=== PATIENT | male | born 1955 | race Caucasian/White ===

== ENCOUNTER → 2016-12-31 | Outpatient (CLI) | payer OTHER | LOC: RAD 15:03 | DX: M54.5 Low back pain (principal); M54.6 Pain in thoracic spine ==

== ENCOUNTER → 2017-06-20 | Outpatient (CLI) | payer OTHER ==
[~2017-06-20] VITALS: Ht 177.8 cm; Wt 97.5 kg
[~2017-06-20] MED LIST: ARISTADA1064 MG/3. IM; ATIVAN0.5 MG PO; CITRATE OF MAG296 M1 PO; COLACE100 MG PO; CYMBALTA60 MG PO; DEPAKOTE ER500 MG PO; DULCOLAX5 MG PO; FISH OIL 1,001000 M2 PO; FLOMAX0.4 MG PO; LIDOCAINE1 EACH TRANSDERM; LIORESAL 10 MG10 MG PO; MILK OF MA2400 MG/10 PO; NAPROXEN250 MG PO; PERCOCET PO; POLYETHYLENE G255 G1 PO; PROBIOTIC1 EAC1 PO; SEROQUEL 50 MG50 MG PO; SYNTHROID50 MCG PO; TIZANIDINE HCL4 M1 PO; TRAMADOL 50 MG50 MG PO; TRAZODONE HCL100 MG PO; VITAMIN C100 MG PO; VITAMIN D2000 UNIT PO; ZANAFLEX4 MG PO
--- NOTE | ~2017-06-20 | HPC ---
[facility] [place] [address] PAIN MANAGEMENT CONSULTATION Name: SENA BAÑUELOS [facility] [id number] Admission: 06/20/17 Attend Phys: Abrahan Chaves DO Discharge: Date of : 55 Report #: [id number] THIS REPORT FOR: //name// CC: Sena Chaves PAIN CLINIC CONSULT The patient is a 62-year-old gentleman seen in consultation at the request of Dr. Victor Hugo Romero for consideration of spinal cord stimulator trial. HISTORY OF PRESENT ILLNESS: The patient is a 62-year-old gentleman with chronic axial back pain for 8 years off and on, though he relates onset of pain following an event in 2001. He states he was swinging from a tree vine, which snapped and he fell striking his back with acute exacerbation of back pain. He states he struggled with this for some time. Apparently, his passed in 2006 and he has struggled with significant depression and psychosis since. Currently, he lives at the [facility] residential care facility for his psychosis. He is seeing Dr. Jeremy Lopez and Elie Renteria his psychologist. They have gotten him to the point where he is a little more functionally stable, but he states his pain is "10" on a VAS and significantly interferes with function. He describes continuous, steady, burning, aching, pulling, sharp, stabbing pain. Again, pain impact score is 59/70. He denies saddle anesthesia or bowel or bladder continence changes. When asked if he has weakness, he states he "feels tired." He does note some paresthesia in the posterior thigh and lateral calf bilaterally. He states his pain is primarily in the low back with some radiation down the left foot and heel. The patient states he has had an IM injections of some sort with questionable efficacy. He apparently had seen a pain clinic physician, Dr. Richter, and had an injection of some kind, (difficult to tell if this is a trigger point or an epidural injection), which he states it made his pain worse, this was in December. He states he has done chiropractic manipulation, acupuncture, massage, all with nominal efficacy. He notes his pain is exacerbated with any axial loading, standing or walking. He gets some relief when he is recumbent. REVIEW OF SYSTEMS: Complete review of systems was attached to chart and gone over with the patient. SOCIAL HISTORY: He is . He does not smoke or drink alcohol to excess. He did smoke and use recreational marijuana and drink to excess some 40 years ago. 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 MEDICATIONS: Include thyroid supplement for hypothyroidism. Multiple medications for bipolar disorder and psychosis including Abilify, Depakote, Cymbalta, trazodone, and lorazepam. He had been on Flexeril, but was recently rotated to baclofen by a psychiatrist with no improvement of the axial back [address] [address] PAIN MANAGEMENT CONSULTATION Name: SENA BAÑUELOS Room #: REG JADEN Azul#: [id number] Admission: 06/20/17 Attend Phys: Abrahan Chaves DO Discharge: Date of : 55 Report #: [id number] pain. He takes tramadol p.r.n. for pain. The patient lists his occupation as "retired." He has been unable to work since his passed and now some 8 years ago. I believe he is currently on worker's compensation but he is receiving disability income worker's compensation. 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 PHYSICAL EXAMINATION: Reveals a 5 feet 10 inches, 215 pounds gentleman, BMI is 30.8 kilograms per meter squared, blood pressure 118/63, pulse 64, respirations 18. Cranial nerves 2-12 are grossly intact. Pupils equal, react to light and accommodation. Extraocular muscles are intact. There is no nystagmus, lateral gaze deviation. Cervical range of motion is full. Thyroid is unremarkable. Upper extremity strength is preserved. Heart is regular rhythmical without murmur. Lungs are clear to auscultation. He rises from chair using armrest. Gait is tandem. Lumbar flexion is limited, thoracic paravertebral muscles shows significant spasm from about T7 down to L2. No discrete trigger points are noted. Patellar reflexes 1/4 with isometric contraction. Achilles reflexes are 0-1/4 and symmetric. Lower extremity strength is symmetric at 4-5. Straight leg raise is negative. Pain is exacerbated with standing and rotating and side bending exacerbate axial back pain. DIAGNOSTIC STUDIES: Include x-ray of the lumbar spine from 12/31/2016 noting old T12 and L1 compression fractures. Thoracic spine similarly shows the T12 and L1 wedge deformities, no other pathology noted. ASSESSMENT: Axial back pain, thoracolumbar spondylosis, vertebral compression fractures by history, chronic pain syndrome in a gentleman with bipolar disorder and psychosis. RECOMMENDATIONS: Discussion with the patient today about therapeutic options. He was not too enthused when I suggested a TENS unit. I suggested that it may help with some of the muscle spasm. I suggested rotating from baclofen to tizanidine 4 mg t.i.d. for spasm. He was very curious about a spinal cord stimulator. I discussed risks, benefits and proposed mechanism of action. The patient seemed to understand. He was given a disc from a [employer] regarding this device. I did give him a psychological evaluation as required by most third alliance party payers for spinal cord stimulator implant. Assuming he passes the psychiatric exam which is questionable at best, we will seek authorization for spinal cord stimulator trial to help with chronic axial back pain that has been recalcitrant through conservative therapies. We will see the patient back in 4 weeks for reevaluation. <ELECTRONICALLY SIGNED> By: Abrahan Chaves DO 06/23/17 0911 1620 [id number] Abrahan Chaves DO /nt
[2017-06-20 11:09] VITALS: BP 118/63
== END ==
LOC: PAIN 06:56
DX: M47.895 Other spondylosis, thoracolumbar region (principal); G89.4 Chronic pain syndrome; F31.9 Bipolar disorder, unspecified; F29 Unspecified psychosis not due to a substance or known physiological condition; F15.90 Other stimulant use, unspecified, uncomplicated; Z87.891 Personal history of nicotine dependence

== ENCOUNTER → 2017-07-21 | Outpatient (CLI) | payer OTHER ==
[~2017-07-21] VITALS: Ht 177.8 cm; Wt 99.8 kg
--- NOTE | ~2017-07-21 | HPC ---
[facility] [place] [address] PAIN MANAGEMENT CONSULTATION Name: SENA BAÑUELOS Room #: REG [facility] [id number] Admission: 07/21/17 Attend Phys: Abrahan Chaves, DO Discharge: Date of : 55 Report #: [id number] THIS REPORT FOR: //name// CC: Sena Chaves The patient is a 62-year-old gentleman, prior seen in the pain clinic on 06/20/2017. He was seen at the request of Dr. Romero for consideration for spinal cord stimulator trial. He was diagnosed at that time with axial back pain, thoracolumbar spondylosis, history of vertebral compression fractures, chronic pain syndrome in a gentleman with bipolar disorder and psychosis. I had a prolonged discussion with the patient and his cartridge loader about trialing a TENS unit rotating from baclofen to tizanidine for spasm. We discussed the spinal cord stimulator for chronic axial back and radicular pain. I talked about the need for psychological evaluation as required by most third libertarian payers for spinal cord stimulator implant. The patient returns to the pain clinic today. He did not get the TENS unit trial. He states that the tizanidine was not effective and notes that the baclofen was not effective either. States he did not talk to his psychologist regarding authorization for spinal cord stimulator. I reviewed again with the patient today the specific requirement by insurance company for psychological evaluation, "please evaluate the patient for each of the following psychological disorders both past and current including but not limited to: Major psychopathology, severe depression that would interfere with ability to translate pain relief into increased function, personality disorders, somatoform pain disorders, substance abuse, anxiety disorder, malingering, indications of secondary gain. Evaluate the patient's coping resources and abilities and the patient's understanding of the proposed procedure. After discussion with the patient today, I again remain somewhat skeptical that he will pass this evaluation. However, if he does, I will be happy to trial a stimulator. In the meantime, I rewrote the TENS unit trial for myofascial pain component. I will not renew tizanidine due to lack of efficacy. Follow up after TENS trial for efficacy evaluation and consideration for a spinal cord stimulator if he passes psychological evaluation. <ELECTRONICALLY SIGNED> By: Abrahan Chaves DO 07/23/17 0724 1618 [id number] Abrahan Chaves DO /nt
[2017-07-21 10:24] VITALS: BP 112/69
== END ==
LOC: PAIN 07:30
DX: M47.895 Other spondylosis, thoracolumbar region (principal)

== ENCOUNTER → 2017-08-15 | Outpatient (CLI) | payer OTHER ==
[~2017-08-15] VITALS: Ht 177.8 cm; Wt 102.8 kg
--- NOTE | ~2017-08-15 | HPC ---
[facility] [place] [address] PAIN MANAGEMENT CONSULTATION Name: SENA BAÑUELOS Room #: [facility] [id number] Admission: 08/15/17 Attend Phys: Abrahan Chaves DO Discharge: Date of : 55 Report #: [id number] THIS REPORT FOR: //name// CC: Sena Chaves The patient is a 62-year-old gentleman, specifically referred to the pain clinic 06/20/2017, for consideration of a spinal cord stimulator to help with ongoing axial back pain by his neurosurgeon, Dr. Victor Hugo Romero. I saw the patient at that time and in followup 07/21/2017. He did have a component of myofascial pain and I wrote for a TENS unit. We trialled rotating from baclofen to tizanidine with really no efficacy. He returns to pain clinic today noting the TENS unit does afford some relief. Still, however, notes pain remains a 6-7 on a VAS at its worse, it is down to a 2/10 with the stimulator presently. He is desirous of moving forward with spinal cord stimulator trial for ongoing axial back pain status post L2 compression fracture in the distant past. PHYSICAL EXAMINATION: Otherwise unchanged, 5 feet 10 inches, 226-pound gentleman, BMI is 32.5 kg/m2. Vital signs stable as noted in the EMR. Rises from chair using armrest. Currently, he is using the TENS unit in the upper back with some efficacy. I pointed out that the stimulator if approved will help with axial back pain and component of radicular pain; however, will not help with the myofascial pain in the upper back. The patient did get the psychological evaluation; however, we do not have a copy of this at present. I asked the machine adjuster leader case trim with the patient today to work at trying to get a copy of the psychological evaluation to the clinic, so we can move forward with attempting authorization for spinal cord stimulator. ADDENDUM: I was able to locate the psychologic evaluation. His psychologist does not see any co-morbidities that might interfere with this patient's ability to evaluate a SCS trial. He does have significant co-morbid psychiatric concerns; these are being treated. The patient did stress to his psychologist that he is very hopeful and enthusiastic that this treatment may enable improved functional status; presently pain is "rate limiting" for this patients ability to sit, stand or walk for times greater than 15-20 minutes. ASSESSMENT: 1. Axial back pain 2. Lumbar spondylosis sans myelopathy [address] [address] PAIN MANAGEMENT CONSULTATION Name: SENA BAÑUELOS Room #: REG [facility] Latha#: [id number] Admission: 08/15/17 Attend Phys: Abrahan Chaves DO Discharge: Date of : 55 Report #: [id number] 3. s/p Lumbar vert comp fracture 4. neuropathic pain, back and legs <ELECTRONICALLY SIGNED> By: Abrahan Chaves DO 08/21/17 0938 1235 1605 Abrahan Chaves DO /nt
[2017-08-15 11:14] VITALS: BP 139/70
== END ==
LOC: PAIN 07:06
DX: M54.9 Dorsalgia, unspecified (principal); M96.1 Postlaminectomy syndrome, not elsewhere classified

== ENCOUNTER → 2017-10-03 | Outpatient (CLI) | payer OTHER ==
[~2017-10-03] VITALS: Ht 177.8 cm; Wt 98.3 kg
[~2017-10-03] MED LIST changes: -ARISTADA1064 MG/3. IM; -CITRATE OF MAG296 M1 PO; -COLACE100 MG PO; -DULCOLAX5 MG PO; -MILK OF MA2400 MG/10 PO; -PERCOCET PO; -SEROQUEL 50 MG50 MG PO; -TIZANIDINE HCL4 M1 PO
--- NOTE | ~2017-10-03 | HPC ---
[facility] [place] [address] PAIN MANAGEMENT CONSULTATION Name: SENA BAÑUELOS Room #: REG [facility]#: [id number] Admission: 10/03/17 Attend Phys: Abrahan Chaves DO Discharge: Date of : 55 Report #: [id number] THIS REPORT FOR: //name// CC: Sena Chaves The patient is a 62-year-old gentleman who presents to the pain clinic today for spinal cord stimulator trial. He has ongoing axial back pain, lumbar radicular pain, left side. Lumbar spondylosis has failed conservative therapy. He was referred to us by Dr. Victor Hugo Romero for consideration of spinal cord stimulator. Last visit on 08/15/2017, we reviewed risks, benefits and psychological evaluation as required by third republican payer. The patient wished to proceed with a trial and presents to the pain clinic today for same. ASSESSMENT: Symptomatic lumbar radiculopathy, axial back pain, lumbar spondylosis without myelopathy failing conservative therapy. RECOMMENDATION: Spinal cord stimulator trial under fluoroscopy x 2. PROCEDURE NOTE: After written informed consent was obtained including risk of paralysis, infection, increased pain and procedure failure along with spinal cord trauma, the patient elected to proceed. Intravenous access was established in the right upper extremity. The patient was given 1 gram of Ancef, taken to the fluoroscopy suite and placed in the prone position with appropriate abdominal bolstering. Wide surgical prep and drape was accomplished. A local skin wheal was raised with 1% Xylocaine. An incision was made with a #11 scalpel. A 14 gauge epidural Tuohy needle was inserted from a right paramedian approach entering the posterior spinous process at T12-L1. Stylet was removed. A saline filled glass syringe was connected. With continuous plunger pressure and biplanar fluoroscopy, the needle was easily advanced into the epidural space with good loss of resistance. No blood or cerebrospinal fluid was noted. A single 16 contact 50 cm lead was advanced to the top of T6. Procedure was repeated approximately 1 cm superior again with right paramedian approach with the needle entering the T12-L1 epidural space. Again, lead was easily advanced this time slightly to the left of midline to the top of T6. Leads covered T6, T7 and T8. With fluoroscopy, the needles and stylets were removed. Leads remained well positioned in the posterior aspect of the epidural space. The leads were secured using mastic and Steri-Strips. A wide bolster dressing was placed. The patient was allowed to ambulate to recovery room, discussed spinal cord stimulator lead patterns with the device rep (S[employer] from [employer]). The patient has contact information for the pain clinic physician distribution systems serviceperson should he have any concerns with increased pain, weakness, fever, chills, etc. He will contact the device rep for any questions regarding stimulation patterns. Fluoroscopy time was under 1 minute. The patient was monitored for an [address] [address] PAIN MANAGEMENT CONSULTATION Name: SENA BAÑUELOS Room #: REG JADEN Azul#: [id number] Admission: 10/03/17 Attend Phys: Abrahan Chaves DO Discharge: Date of : 55 Report #: [id number] appropriate period of time and discharged in good and stable condition. Follow up in 1 week for lead removal and evaluation of trial. The patient notes his rate limiting factors currently are spending about 15 minutes trying to put bird's feed in the feeder and spending greater than 30 minutes pushing a lawnmower. We encouraged him to participate in both these activities while cautioning him about extreme rotation and flexion. <ELECTRONICALLY SIGNED> By: Abrahan Chaves DO 10/06/17 0830 1202 0112 Abrahan Chaves DO /nt
[2017-10-03 10:13] VITALS: BP 117/68
== END | disposition home or self-care (01) ==
LOC: PAIN 06:58
DX: Z46.2 Encounter for fitting and adjustment of other devices related to nervous system and special senses (principal); M54.16 Radiculopathy, lumbar region; M47.896 Other spondylosis, lumbar region; Z79.899 Other long term (current) drug therapy; Z87.891 Personal history of nicotine dependence; G89.29 Other chronic pain

== ENCOUNTER → 2018-04-29 | Outpatient (CLI) | payer OTHER ==
[~2018-04-29] MED LIST changes: +ARISTADA1064 MG/3. IM; +CITRATE OF MAG296 M1 PO; +COLACE100 MG PO; +DULCOLAX5 MG PO; +MILK OF MA2400 MG/10 PO; +PERCOCET PO; +SEROQUEL 50 MG50 MG PO; +TIZANIDINE HCL4 M1 PO
== END ==
LOC: ULTRA 09:55
DX: M79.89 Other specified soft tissue disorders (principal)

== ENCOUNTER 2019-09-25 06:23 | Emergency (ER) | payer OTHER ==
[2019-09-25] MEDS ORDERED: PROBIOTIC1 EAC7 PO (08:01)
[2019-09-25] MEDS ORDERED: FISH OIL 1,0001 EAC9 PO (08:01)
[2019-09-25] MEDS ORDERED: ALPRAZOLAM1 MG PO (08:05)
[2019-09-25] MEDS ORDERED: QUETIAPINE FUM200 MG PO (08:17)
== END 2019-09-25 06:36 ==
LOC: ER 06:23
DX: I46.9 Cardiac arrest, cause unspecified (principal); F17.210 Nicotine dependence, cigarettes, uncomplicated; Z79.899 Other long term (current) drug therapy